=== PATIENT | male | born 1960 | race Caucasian/White ===

== ENCOUNTER → 2024-12-09 07:56 | Outpatient (REF) | payer OTHER, SELFPAY | LOC: HWRCS 07:56 | PROVIDERS: ATTENDING PHYSICIAN Family Medicine | DX: R07.89 Other chest pain (principal) | CPT/HCPCS: 93306 ==

== ENCOUNTER → 2024-12-12 07:32 | Outpatient (REF) | payer OTHER, SELFPAY | LOC: RCS 07:32 | PROVIDERS: ATTENDING PHYSICIAN Family Medicine | DX: R07.89 Other chest pain (principal) | CPT/HCPCS: 93017 ==

== ENCOUNTER 2024-12-23 07:32 | Day surgery (SDC) | payer OTHER, SELFPAY ==
[2024-12-23] VITALS (26 sets, daily range): BP systolic 138–187; BP diastolic 55–98; BMI 33.0
[2024-12-23 08:38] LABS: Hematocrit 39.5 % (39.0-52.0); Mean Corp Hgb Conc. 35.4 g/dL (33.0-37.0); Mean Corpuscular Hgb 31.3 pg (27.0-31.0); Mean Corpuscular Volume 88.4 fL (80.0-94.0); Mean Platelet Volume 10.1 fL (7.4-10.4); Platelet Count 217 10^3/uL (130-400); Red Blood Cell Count 4.47 10^6/uL (4.70-6.10); Red Cell Dist. Width 12.2 % (11.5-14.5); White Blood Cell Count 6.6 10^3/uL (4.8-10.8)
[2024-12-23] MEDS: NSS 313 ML IV (08:40)
[2024-12-23 08:46] LABS: INR 1.02; PT 13.7 Sec (11.4-14.6)
[2024-12-23 08:47] LABS: APTT 28.1 Sec (23.4-35.0)
[2024-12-23 08:52] LABS: ALT (SGPT) 23 U/L (0-50); AST (SGOT) 23 U/L (17-59); Albumin 4.1 g/dl (3.5-5.0); Alkaline Phosphatase 81 U/L (38-126); Blood Urea Nitrogen 12 mg/dl (9-20); Calcium 9.3 mg/dl (8.4-10.2); Carbon Dioxide 26 mmol/L (22-30); Chloride 107 mmol/L (98-107); Estimated Creatinine Clearance 111 ml/min; Glucose 103 mg/dl (70-99); Sodium 141 mmol/L (135-145); Total Protein 6.4 g/dl (6.3-8.2); eGFR > 60.00
[2024-12-23] MEDS: LOW STRENGTH ASPIRIN 81 MG PO (09:22)
[2024-12-23 11:17] LABS: ACT-LR - POC 189 Seconds (116-155)
[2024-12-23 11:25] LABS: ACT-LR - POC 221 Seconds (116-155)
[2024-12-23 11:36] LABS: ACT-LR - POC 197 Seconds (116-155)
[2024-12-23 11:46] LABS: ACT-LR - POC 239 Seconds (116-155); ACT-LR - POC 242 Seconds (116-155)
[2024-12-23 12:19] LABS: ACT-LR - POC 245 Seconds (116-155)
--- NOTE | 2024-12-23 12:36 | ITS.CL.CATH ---
Addendum entered and electronically signed by Juan Luong MD 12/23/24 15:02:
Attending addendum: Patient is on apixaban / Eliquis 2.5 mg bid. Lets treat with aspirin x 1 month. Plavix 75 mg daily and Eliquis 2.5 mg bid
Original Note:
Lease Administrator - Catheterization
Cardiac Catheterization
Procedure Report:
LEFT HEART CATH AND CORONARY INTERVENTION
Date of Procedure: December 23, 2024
Referring: Dr. Saad Hardin
PROCEDURES:
1. Left heart catheterization with coronary and single-plane left ventriculography
2. Hemodynamic assessment of LAD using a Gridcentric Omni wire with the iFR measuring just above the ischemic threshold at 0.91
3. Successful stenting of right coronary artery posterolateral branch with a 2.25 x 18 mm Xience stent that was implanted at nominal pressures and postdilated to high pressures with a 2.25 mm noncompliant balloon
INDICATION: This is a 64-year-old gentleman with a past medical history notable for remote pulmonary emboli and was found to have a prothrombin gene mutation for which she is chronically maintained on apixaban 2.5 mg p.o. twice daily. Additional
history includes essential hypertension, obstructive sleep apnea, and mixed hyperlipidemia for which she was just started on high intensity rosuvastatin 40 mg daily. On 2023 he noticed the onset of substernal chest tightness with
symptoms lasting several hours before spontaneous resolution. The symptoms returned on and then resolved spontaneously. Since that time he has resumed reasonably normal activity but recently has noticed more increased shortness of
breath and only recently has he noticed a recurrence of substernal chest pressure. A recent stress study was notable for development of severe chest discomfort at approximately 6:30 minutes of physical activity on a Grant protocol with [address]
segment depression in leads II, III, aVF and V5-V6. Now referred for coronary
ACCESS: Right radial artery, 6 [place] sheath
HEMODYNAMICS (mmHg):
AO (s/d, m) : 150/76, 104
LV (s/d) : 148/15
LVEDP : 26
CORONARY FINDINGS
Dominance: Right
LEFT MAIN: [ ]
LEFT ANTERIOR DESCENDING: The LAD arises normally from the left main and runs in the anterior interventricular groove. The LAD has diffuse luminal irregularities to 30-40% but no focal obstructive stenosis. The distal LAD becomes tortuous and
tapers to a small caliber vessel. There is a single diagonal branch that arises from the midportion of the vessel with minor irregularities. The iFR in the mid-distal LAD measured just above the ischemic threshold at 0.91, 0.91, and 0.91 as
described below
CIRCUMFLEX: The circumflex is a medium caliber nondominant vessel. There is a 70-80% ostial circumflex stenosis. OM1 arises very proximally from the circumflex and has a 70% ostial narrowing and 80% mid stenosis. It is a small caliber vessel
(approximately 2.0 mm) supplying a small to medium size vascular territory. The mid circumflex beyond OM1 has a long 60% stenosis extending into a terminal obtuse marginal branch.
RIGHT CORONARY: The right coronary artery is a large-caliber dominant vessel that is tortuous over its course. There is a 30% stenosis in the mid right coronary artery. The PDA is large with a 40% mid stenosis and an 60% distal stenosis in a very
tortuous segment. The posterolateral branch is a moderate caliber vessel that is subtotally occluded in its midportion. There is BEN II flow distally.
VENTRICULOGRAPHY: Left ventriculography is performed in an FLORIAN projection. The digital single-plane left ventricular ejection fraction is estimated at 60%
HEMODYNAMIC ASSESSMENT OF THE LAD WITH A VOLCANO OMNI WIRE: The origin of the LAD was cannulated with a 6 Fr JL 4 guide catheter. Intravenous heparin was administered and the ACT was followed during the procedure. The patient required high dose
heparin in order to maintain a therapeutic ACT. Two hundred micrograms of intracoronary nitroglycerin was given through the guide catheter. A [place] Omni wire was advanced to the guide catheter tip and normalized to guide catheter pressure. The
Omni wire was then carefully advanced to the mid-distal LAD where the iFR serially measured just above the ischemic threshold at 0.91, 0.91, and 0.91. A slow pullback was performed Pd/Pa gradually improved back to the ostium where the Pd/Pa
measured 0.99.
ANGIOPLASTY PROCEDURE DETAIL: It was felt that the stenosis in the posterolateral branch most likely was the culprit vessel causing recent onset and symptoms. At this point the decision was made to proceed with percutaneous revascularization of the
posterolateral branch. I was not convinced the posterolateral branch would be a target for revascularization even if surgical revascularization were recommended.
Additional heparin was required to maintain a therapeutic ACT. A total of 16,500 units of heparin were administered throughout the procedure to maintain a therapeutic ACT. A 324 mg loading dose of aspirin was administered at the beginning of the
diagnostic procedure. An additional 600 mg of clopidogrel was administered prior to the interventional procedure.
The origin of the right coronary artery was cannulated with a 6 [place] JR4 guiding catheter and a BMW guidewire was advanced into the posterolateral branch and across the occluded segment with a moderate degree of difficulty. I initially attempted
to cross the stenotic segment with a 2.0 mm trek balloon. Unfortunately, the balloon would not cross and was removed. A 1.5 mm Euphora balloon was then advanced over the guidewire and successfully crossed the high-grade stenosis. Serial balloon
inflations were performed restoring antegrade flow. Then 1.5 mm Euphora balloon was removed and exchanged for a 2.0 mm Euphora balloon where additional predilation was performed achieving reasonable balloon expansion. A 2.25 x 18 mm Xience stent
was then advanced over the guidewire and position with angiographic and fluoroscopic guidance. The stent was deployed at 12 inna and postdilated to high pressures with a 2.25 mm noncompliant balloon with a nice angiographic result
RADIATION SUMMARY: Fluoro Time (min): 16.5, Dose (mGy): 1280, DAP (Gy.cm2) : 80.6
CONCLUSIONS
1. Successful stenting of the mid posterolateral branch with a 2.25 x 18 mm Xience stent that was implanted at nominal pressures and postdilated with a 2.25 mm noncompliant balloon to high pressures
2. Ostial and mid circumflex stenosis may be angiographically significant, however, treatment options are limited given proximity to the left main. The iFR in the LAD measured just above the ischemic threshold. I would titrate medications for
goal blood pressure consistently less than 120/80. I am hopeful that with good blood pressure control that anginal symptoms may improve/resolve and medical therapy of the ostial circumflex stenosis may be most appropriate.
3. Preserved LV systolic function
RECOMMENDATIONS
1. Begin metoprolol 25 mg p.o. twice daily. We can always decrease to 25 mg daily if heart rate becomes too slow
2. Needs really aggressive control of blood pressure. Can always increase amlodipine from 5 to 10 mg. I will ask him to monitor home blood pressures with more regularity
3. High intensity statin was just started less than 2 weeks ago. He should have repeat fasting lipid profile in 6 to 8 weeks
Copy to: Dr. Saad Hardin
[2024-12-23] MEDS: NORVASC 5 MG PO (14:43)
[2024-12-23 15:09] LABS: ACT-LR - POC > 397 Seconds (116-155)
--- NOTE | 2024-12-23 17:12 | W.PN.UPDATE ---
Update Note
Progress Note Update
Pt seen post RCA PCI. Right radial cath site without ht/bleeding, non tender. Post EKG SB 58, no acute changes. Tele with range 50-60s. OOB ambulating. Will be on triple therapy for 30 days post procedure with aspirin 81mg daily, plavix 75mg daily,
and eliquis 2.5mg BID, which is for chronic PE. After 30 days, aspirin will be discontinued and he will remain on plavix/eliquis only. Cardiac rehab consulted. Followup at [facility] as scheduled. Home today if cath site/tele remain stable.
== END 2024-12-23 17:08 | disposition home or self-care (01) ==
LOC: CATH 07:32
PROVIDERS: ATTENDING PHYSICIAN Internal Medicine Interventional Cardiology; FAMILY PHYSICIAN Family Medicine; OTHER PHYSICIAN Internal Medicine Cardiovascular Disease
DX: I25.119 Atherosclerotic heart disease of native coronary artery with unspecified angina pectoris (principal); Z86.711 Personal history of pulmonary embolism; I10 Essential (primary) hypertension; E78.2 Mixed hyperlipidemia; G47.33 Obstructive sleep apnea (adult) (pediatric); Z79.82 Long term (current) use of aspirin; Z79.02 Long term (current) use of antithrombotics/antiplatelets
CPT/HCPCS: 93799; 80053; 85027; 85347; 85610; 85730; 93005; 93458; C1725; C1769; C1874; C1894; C9600; Q9967

== ENCOUNTER 2025-01-21 11:23 | Outpatient (RCR) | payer OTHER, SELFPAY | END 2025-01-21 23:59 | disposition home or self-care (01) | LOC: CRHB 11:23 | PROVIDERS: ATTENDING PHYSICIAN Internal Medicine Cardiovascular Disease | DX: I25.10 Atherosclerotic heart disease of native coronary artery without angina pectoris (principal); Z95.5 Presence of coronary angioplasty implant and graft | CPT/HCPCS: 93797; 93798 ==

== ENCOUNTER 2025-03-05 08:54 | Outpatient (RCR) | payer OTHER, SELFPAY | END 2025-03-05 23:59 | disposition home or self-care (01) | LOC: CRHB 08:54 | PROVIDERS: ATTENDING PHYSICIAN Internal Medicine Cardiovascular Disease | DX: I25.10 Atherosclerotic heart disease of native coronary artery without angina pectoris (principal); Z95.5 Presence of coronary angioplasty implant and graft | CPT/HCPCS: 93797; 93798 ==

== ENCOUNTER 2025-04-04 09:39 | Outpatient (RCR) | payer OTHER, SELFPAY | END 2025-04-04 23:59 | disposition home or self-care (01) | LOC: CRHB 09:39 | PROVIDERS: ATTENDING PHYSICIAN Internal Medicine Cardiovascular Disease | DX: I25.10 Atherosclerotic heart disease of native coronary artery without angina pectoris (principal); Z95.5 Presence of coronary angioplasty implant and graft | CPT/HCPCS: 93798 ==

== ENCOUNTER 2025-04-11 08:55 | Outpatient (RCR) | payer OTHER, SELFPAY | END 2025-04-11 09:00 | disposition home or self-care (01) | LOC: CRHB 08:55 | PROVIDERS: ATTENDING PHYSICIAN Internal Medicine Cardiovascular Disease | DX: I25.10 Atherosclerotic heart disease of native coronary artery without angina pectoris (principal); Z95.5 Presence of coronary angioplasty implant and graft; I10 Essential (primary) hypertension; E78.5 Hyperlipidemia, unspecified | CPT/HCPCS: 93798 ==